=== PATIENT | female | born 1970 | race American Indian/Alaskan Native ===

== ENCOUNTER → 2019-01-31 07:23 | Outpatient (CLI) | payer BC, SELFPAY ==
[2019-01-31 09:15] LABS: Alanine Aminotransferase 68 IU/L (9-52); Albumin 4.3 g/dL (3.5-5.0); Albumin Globulin Ratio 1.5 (1.0-2.8); Alkaline Phosphatase 83 U/L (38-126); Aspartate Aminotransferase 42 IU/L (14-36); BUN Creatinine Ratio 12.9 (6-22); Blood Urea Nitrogen 9 mg/dL (7-17); Calcium 9.4 mg/dL (8.4-10.2); Carbon Dioxide 28 mmol/L (22-32); Chloride 102 mmol/L (98-107); Cholesterol 147 mg/dL (140-199); Estimated Glomerular Filt Rate > 60.0 mL/min (>60); Globulin 2.9 g/dL (1.7-4.1); Glucose 111 mg/dL (70-100); HDL Cholesterol 38 mg/dL (40-60); HEMOLYSIS < 15 (0-50); LDL Cholesterol Calculated 73 mg/dL (<100); Potassium 4.3 mmol/L (3.4-5.1); Sodium 142 mmol/L (137-145); Total Protein 7.2 g/dL (6.3-8.2); Triglycerides 180 mg/dL (35-150)
[2019-01-31 09:19] LABS: Creatinine Urine Random 265.2 mg/dL
[2019-01-31 09:45] LABS: Microalbumi Creatinin Ratio Ur 104.4 ug/mg CR (<30); Microalbumin Urine Random 27.7 mg/dL (0-1.6)
== END ==
PROVIDERS: Family Provider Physician Assistant; PCP Physician Assistant; Visit Provider Physician Assistant
DX: I10 Essential (primary) hypertension (principal); F41.8 Other specified anxiety disorders; G47.33 Obstructive sleep apnea (adult) (pediatric); E66.01 Morbid (severe) obesity due to excess calories
CPT/HCPCS: 36415; 80053; 80061; 82043; 82570

== ENCOUNTER → 2019-10-16 07:00 | Outpatient (CLI) | payer BC, SELFPAY ==
[2019-10-16 09:08] LABS: Alanine Aminotransferase 64 IU/L (<35); Albumin 4.3 g/dL (3.5-5.0); Albumin Globulin Ratio 1.4 (1.0-2.8); Alkaline Phosphatase 81 U/L (38-126); Aspartate Aminotransferase 48 IU/L (14-36); BUN Creatinine Ratio 17.1 (6-22); Bilirubin Total 0.8 mg/dL (0.2-1.3); Blood Urea Nitrogen 12 mg/dL (7-17); Calcium 9.1 mg/dL (8.4-10.2); Carbon Dioxide 30 mmol/L (22-32); Chloride 99 mmol/L (98-107); Cholesterol 164 mg/dL (140-199); Estimated Glomerular Filt Rate > 60.0 mL/min (>60); Glucose 132 mg/dL (70-100); HDL Cholesterol 30 mg/dL (40-60); HEMOLYSIS < 15 (0-50); LDL Cholesterol Calculated 89 mg/dL (<100); Potassium 3.8 mmol/L (3.4-5.1); Sodium 137 mmol/L (137-145); Total Protein 7.3 g/dL (6.3-8.2); Triglycerides 226 mg/dL (35-150)
[2019-10-16 09:42] LABS: Creatinine Urine Random 233.4 mg/dL
[2019-10-16 09:46] LABS: Microalbumi Creatinin Ratio Ur 14.9 ug/mg CR (<30); Microalbumin Urine Random 3.5 mg/dL (0-1.6)
== END ==
PROVIDERS: PCP Physician Assistant; Visit Provider Physician Assistant
DX: E78.1 Pure hyperglyceridemia (principal); I10 Essential (primary) hypertension
CPT/HCPCS: 36415; 80053; 80061; 82043; 82570

== ENCOUNTER → 2021-02-12 12:27 | Outpatient (CLI) | payer BC, SELFPAY ==
[2021-02-12] MEDS: COVID-19 VACC #1, MRNA(MOD) 100 MCG/0.5 ML VIAL IM (12:35)
== END ==
PROVIDERS: PCP Family Medicine; Visit Provider Internal Medicine
DX: Z23 Encounter for immunization (principal)
CPT/HCPCS: 0011A; 91301

== ENCOUNTER → 2021-03-12 12:17 | Outpatient (CLI) | payer BC, SELFPAY ==
[2021-03-12] MEDS: COVID-19 VACC #2, MRNA(MOD) 100 MCG/0.5 ML VIAL IM (12:24)
== END ==
PROVIDERS: PCP Family Medicine; Visit Provider Internal Medicine
DX: Z23 Encounter for immunization (principal)
CPT/HCPCS: 0012A; 91301

== ENCOUNTER → 2022-12-13 07:30 | Outpatient (CLI) | payer OTHER, SELFPAY ==
[2022-12-13 09:00] LABS: Add Manual Diff / Slide Review NO; Basophils Absolute Auto 0 /uL (0-100); Basophils Percent Auto 0.6 % (0-2); Eosinophils Absolute Auto 200 /uL (0-450); Eosinophils Percent Auto 2.3 % (2-4); Hematocrit 39.6 % (36-46); Hemoglobin 13.3 g/dL (12.0-16.0); Lymphocytes Absolute Auto 3200 /uL (1100-4500); Lymphocytes Percent Auto 44.3 % (25-40); Mean Corpuscular HGB Conc 33.6 % (30-36); Mean Corpuscular Hemoglobin 27.4 PG (26-34); Mean Corpuscular Volume 81.5 fL (80-100); Monocytes Absolute Auto 400 /uL (0-900); Monocytes Percent Auto 5.8 % (3-14); Neutrophils Absolute Auto 3400 /uL (1500-7000); Platelet Count 244 X10^3/uL (150-400); Red Blood Cell Count 4.86 X10^6/uL (4.0-5.2); Red Cell Distribution Width 14.3 % (11.6-14.8); White Blood Cell Count 7.2 X10^3/uL (4.5-11.0)
[2022-12-13 09:06] LABS: Hemoglobin A1C% w Est Avg Glu 10.9 % (4.0-6.0)
[2022-12-13 09:20] LABS: Alanine Aminotransferase 52 IU/L (<35); Albumin 3.8 g/dL (3.5-5.0); Albumin Globulin Ratio 1.4 (1.0-2.8); Alkaline Phosphatase 99 U/L (38-126); Aspartate Aminotransferase 33 IU/L (14-36); Bilirubin Total 0.9 mg/dL (0.2-1.3); Blood Urea Nitrogen 8 mg/dL (7-17); Calcium 8.9 mg/dL (8.4-10.2); Carbon Dioxide 24 mmol/L (22-32); Chloride 104 mmol/L (98-107); Cholesterol 138 mg/dL (140-199); Estimated Glomerular Filt Rate > 60 mL/min (>60); Globulin 2.7 g/dL (1.7-4.1); Glucose 307 mg/dL (70-100); HDL Cholesterol 30 mg/dL (40-60); HEMOLYSIS < 15 (0-50); LDL Cholesterol Calculated 56 mg/dL (<100); Potassium 4.3 mmol/L (3.4-5.1); Sodium 138 mmol/L (137-145); Total Protein 6.5 g/dL (6.3-8.2); Triglycerides 259 mg/dL (35-150)
[2022-12-13 09:48] LABS: TSH w/ Reflex to FT4 2.03 uIU/mL (0.47-4.68)
== END ==
PROVIDERS: PCP Family Medicine; Referring Provider Family Medicine; Visit Provider Family Medicine
DX: E66.01 Morbid (severe) obesity due to excess calories (principal); E78.1 Pure hyperglyceridemia; F32.89 Other specified depressive episodes; I10 Essential (primary) hypertension; R73.9 Hyperglycemia, unspecified
CPT/HCPCS: 36415; 80053; 80061; 83036; 84443; 85025

== ENCOUNTER → 2024-01-17 07:11 | Outpatient (CLI) | payer OTHER, SELFPAY ==
[2024-01-17 07:31] LABS: Add Manual Diff / Slide Review NO; Basophils Absolute Auto 100 /uL (0-100); Basophils Percent Auto 0.6 % (0-2); Eosinophils Absolute Auto 200 /uL (0-450); Eosinophils Percent Auto 2.9 % (2-4); Hematocrit 40.2 % (36-46); Hemoglobin 13.6 g/dL (12.0-16.0); Lymphocytes Absolute Auto 3500 /uL (1100-4500); Lymphocytes Percent Auto 43.7 % (25-40); Mean Corpuscular HGB Conc 33.9 % (30-36); Mean Corpuscular Hemoglobin 27.9 PG (26-34); Mean Corpuscular Volume 82.3 fL (80-100); Monocytes Absolute Auto 400 /uL (0-900); Monocytes Percent Auto 5.5 % (3-14); Neutrophils Absolute Auto 3800 /uL (1500-7000); Neutrophils Percent Auto 47.3 % (50-75); Platelet Count 264 X10^3/uL (150-400); Red Blood Cell Count 4.88 X10^6/uL (4.0-5.2); Red Cell Distribution Width 14.1 % (11.6-14.8)
[2024-01-17 07:56] LABS: Alanine Aminotransferase 42 IU/L (<35); Albumin 3.7 g/dL (3.5-5.0); Albumin Globulin Ratio 1.3 (1.0-2.8); Alkaline Phosphatase 79 U/L (38-126); Aspartate Aminotransferase 34 IU/L (14-36); BUN Creatinine Ratio 19.3 (6-22); Bilirubin Total 0.7 mg/dL (0.2-1.3); Blood Urea Nitrogen 11 mg/dL (7-17); Calcium 9.1 mg/dL (8.4-10.2); Carbon Dioxide 26 mmol/L (22-32); Chloride 107 mmol/L (98-107); Cholesterol 142 mg/dL (140-199); Estimated Glomerular Filt Rate > 60 mL/min (>60); Globulin 2.9 g/dL (1.7-4.1); Glucose 229 mg/dL (70-100); HDL Cholesterol 31 mg/dL (40-60); HEMOLYSIS < 15 (0-50); LDL Cholesterol Calculated 59 mg/dL (<100); Potassium 4.1 mmol/L (3.4-5.1); Sodium 138 mmol/L (137-145); Total Protein 6.6 g/dL (6.3-8.2); Triglycerides 260 mg/dL (35-150)
[2024-01-17 08:25] LABS: TSH w/ Reflex to FT4 2.14 uIU/mL (0.47-4.68)
[2024-01-17 11:51] LABS: Hemoglobin A1C% w Est Avg Glu 9.7 % (4.0-6.0)
== END ==
PROVIDERS: PCP Family Medicine; Referring Provider Family Medicine; Visit Provider Family Medicine
DX: E11.9 Type 2 diabetes mellitus without complications (principal); I10 Essential (primary) hypertension; E66.01 Morbid (severe) obesity due to excess calories; G47.33 Obstructive sleep apnea (adult) (pediatric)
CPT/HCPCS: 36415; 80053; 80061; 83036; 84443; 85025

== ENCOUNTER 2024-06-18 07:09 | Emergency (ER) | payer SELFPAY ==
[2024-06-18 07:10] VITALS: BP 178/74; PULSE 83; RESP 16; TEMP 37; O2SAT 97; BMI 40.6
[2024-06-18 07:17] VITALS: PULSE 87; O2SAT 97
--- NOTE | 2024-06-18 07:23 | ED.GENADULT ---
HPI - General Adult General Chief complaint: Dental/Oral Stated complaint: r side face swelling Time Seen by Provider: 06/18/24 07:19 Source: patient, RN notes reviewed and old records reviewed Mode of arrival: Ambulatory Limitations: no limitations History of Present Illness HPI narrative: 54-year-old female history of hypertension diabetes type 2, SUNSHINE, depressive disorder, tobacco use who presents with complaint of dental pain, facial swelling that started 2 days ago. Patient states the 2nd tooth from the right upper posterior became painful she has had increasing swelling and discomfort extending into her cheek and towards her nose. Patient states it feels like it has a little swollen over the hard palate. She states this started Tuesday, she has called but can not get a dental appointment for another week or 2. Denies fevers, no vomiting, she is noticed some swelling of her outer cheek, little bit of redness, no fluid collection. She has not had any drainage from her mouth. She denies any swelling of her tongue or airway. No changes to voice. No nausea or vomiting. Patient has tried Tylenol [id number] without improvement. She does use tobacco daily. She denies any drug allergies. Dr. [place] in his her primary care physician. Related Data Home Medications Medication Instructions Recorded Confirmed ETONOGESTREL (IMPLANON~) 68 mg intradermal ##0 04/05/13 01/19/24 Previous Rx's Medication Instructions Recorded citalopram 20 mg tablet (Celexa) 30 mg (1.5 x 20 mg) PO QDAY #135 01/19/24 tabs glimepiride 1 mg tablet 1 mg PO DAILY #30 tabs 01/19/24 lisinopril 10 mg tablet 10 mg PO DAILY #90 tabs 01/19/24 metformin 500 mg tablet,extended 500 mg PO BID #180 tabs 01/19/24 release 24 hr pioglitazone 15 mg tablet (Actos) 15 mg PO DAILY #90 tabs 01/19/24 trazodone 50 mg tablet 50 mg PO ONCE PM #90 tabs 01/19/24 blood sugar diagnostic (Blood #50 ea 01/20/24 Glucose Test strips) blood-glucose meter (Blood Glucose #1 ea 01/20/24 Monitoring kit) lancets 30 gauge #100 ea 01/20/24 amoxicillin 875 mg-potassium 1 tab PO BID #20 tabs 06/18/24 clavulanate 125 mg tablet tramadol 50 mg tablet 50 mg PO Q6H PRN pain #10 tabs 06/18/24 Allergies Allergy/AdvReac Type Severity Reaction Status Date / Time No Known Drug Allergies Allergy Verified 06/18/24 07:19 Review of Systems Review of Systems ROS Unobtainable: All systems reviewed & are unremarkable except as noted in HPI and below Patient History Medical History Contraception management Insomnia Type 2 diabetes mellitus Obstructive sleep apnea (Unknown) Depression (Unknown) Abnormal Pap smear of cervix (Unknown) Surgical History Status post bunionectomy History of tonsillectomy Status post delivery (03/26/93) Family History Father Obstructive sleep apnea syndrome Social History Smoking Status: Current every day smoker Tobacco: How many years used: 10 second hand exposure: No alcohol intake: current substance use type: does not use Smoking Status: Current every day smoker Exam Narrative Exam Narrative: GEN: well nourished, well appearing female, alert and oriented x 3, patient appears to be in mild distress. HEENT: Atraumatic, pupils are equal round reactive to light, extraocular movements are intact, nares are clear, TMs are clear with no fluid, there is no conjunctival pallor. Throat is clear without any exudates, erythema, tonsillar enlargement or uvular deviation, patient has some mild swelling of the right cheek compared to the left, no appreciable erythema. Patient has some swelling around the right upper molar 2nd from the back on the upper. Patient does not have any obvious drainage or fluid collection. She does not have any swelling of her oropharynx or tongue. Normal speech. No cervical lymphadenopathy. HEART: Regular rate and rhythm without murmur, clicks, rubs. LUNGS:Lungs clear to auscultation, no wheezes, rales, crackles, chest moves symmetrically ABD:bowel sounds normal, soft, non-tender, no guarding, rebound, rigidity, no masses noted, no hepatosplenomegaly MSCL: Non-tender, no muscle atrophy, muscles strength 5/5 upper and lower extremities, full range of motion, normal gait NEURO:CN 2-12 intact, sensation normal Initial Vital Signs Initial Vital Signs: Vital Signs Temperature 98.6 F 06/18/24 07:10 Pulse Rate 83 06/18/24 07:10 Respiratory Rate 16 06/18/24 07:10 Blood Pressure 178/74 H 06/18/24 07:10 Pulse Oximetry 97 06/18/24 07:10 Oxygen Delivery Method Room Air 06/18/24 07:10 Course Orders Ordered: Discontinued Medications Amoxicillin/Clavulanate Potassium (Amoxicillin/Clav 875/125 Mg) 1 tab PO NOW ONE Stop: 06/18/24 07:36 Last Admin: 06/18/24 07:44 Dose: 1 tab Documented By: FANNY Tramadol HCl (Tramadol 50 Mg Tablet) 50 mg PO NOW ONE Stop: 06/18/24 07:36 Last Admin: 06/18/24 07:44 Dose: 50 mg Documented By: FANNY Vital Signs Vital signs: Vital Signs - 8 hr 06/18/24 07:10 06/18/24 07:17 06/18/24 07:30 Temperature 98.6 F Pulse Rate 83 87 80 Respiratory Rate 16 Blood Pressure 178/74 H Pulse Oximetry 97 97 96 Oxygen Delivery Method Room Air Room Air 06/18/24 07:30 Temperature Pulse Rate Respiratory Rate Blood Pressure 150/68 H Pulse Oximetry Oxygen Delivery Method Medical Decision Making [facility] Narrative Medical decision making narrative: 54-year-old female likely is developing dental abscess we will cover with Augmentin, short course of pain medication with return precautions. Patient has already reached out to a dentist to set up follow-up. Discharge Plan Departure Patient Disposition: Home Clinical Impression: Dental abscess Instructions: Tooth Abscess Activity Restrictions/Additional Instructions: Follow up with your dentist. Can take Tylenol up to a 1000 mg every 6 hours and/or ibuprofen up to 600 mg every 6 hours as needed for pain. If in adequate you can take tramadol 1-2 tablets every 6 hours as needed. This medication can make you sleepy do not drive, perform hazardous activities or make any major decisions while taking it. This medication will make you constipated please take a stool softener once to twice daily until stools are soft and regular. Prescription sent to [facility] in [place]. Please return for fevers, swelling of the tongue, airway, changes to voice, persistent vomiting, increasing redness swelling of the face or mouth, purulent drainage or other new or concerning changes. Prescriptions: New amoxicillin-pot clavulanate 875-125 mg tablet 1 tab PO BID Qty: 20 0RF tramadol 50 mg tablet 50 mg PO Q6H PRN (Reason: pain) Qty: 10 0RF No Action ETONOGESTREL (IMPLANON~) 68 mg Intradermal Qty: 0 lisinopril 10 mg tablet 10 mg PO DAILY Qty: 90 0RF Rx Instructions: start taking 3/ citalopram [Celexa] 20 mg tablet 30 mg PO QDAY Qty: 135 3RF metformin 500 mg tablet extended release 24 hr 500 mg PO BID Qty: 180 2RF pioglitazone [Actos] 15 mg tablet 15 mg PO DAILY Qty: 90 3RF trazodone 50 mg tablet 50 mg PO ONCE PM Qty: 90 3RF glimepiride 1 mg tablet 1 mg PO DAILY Qty: 30 2RF Rx Instructions: Take with dinner (DME) blood-glucose meter [Blood Glucose Monitoring] Kit See Rx Instructions .Route Qty: 1 1RF Rx Instructions: Use to test blood sugars BID (DME) lancets 30 gauge misc See Rx Instructions .Route Qty: 100 1RF Rx Instructions: Use to test blood sugar BID (DME) Blood Glucose Test Strip See Rx Instructions .Route Qty: 50 3RF Rx Instructions: Use to test blood sugars bid Referrals: Spencer Samano, [Primary Care Provider] - Stand Alone Forms: Patient Portal/API
[2024-06-18 07:30] VITALS: BP 150/68; PULSE 80; O2SAT 96
[2024-06-18] MEDS: TRAMADOL 50 MG TABLET PO (07:44)
[2024-06-18] MEDS: AMOXICILLIN/CLAV 875/125 MG 1 TAB PO (07:44)
== END 2024-06-18 07:50 | disposition home or self-care (01) ==
PROVIDERS: Emergency Provider Emergency Medicine; PCP Family Medicine
DX: K04.7 Periapical abscess without sinus (principal); Z79.899 Other long term (current) drug therapy
CPT/HCPCS: 99283

== ENCOUNTER 2024-10-13 11:31 | Emergency (ER) | payer OTHER, BC, SELFPAY ==
[2024-10-13] VITALS (25 sets, daily range): BP systolic 148–180; BP diastolic 65–101; PULSE 97–110; RESP 17–31; TEMP 36.9; O2SAT 95–98; BMI 40.6
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
--- NOTE | 2024-10-13 11:52 | EKG_ITS ---
[address] [address] Test Date: 2024-10-13 Pat Name: Nola Caban Department: 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
[2024-10-13 12:21] LABS: Add Manual Diff / Slide Review NO; Basophils Absolute Auto 100 /uL (0-100); Basophils Percent Auto 0.7 % (0-2); Eosinophils Absolute Auto 200 /uL (0-450); Eosinophils Percent Auto 1.7 % (2-4); Hematocrit 41.4 % (36-46); Hemoglobin 13.9 g/dL (12.0-16.0); Lymphocytes Absolute Auto 3700 /uL (1100-4500); Lymphocytes Percent Auto 35.8 % (25-40); Mean Corpuscular HGB Conc 33.5 % (30-36); Mean Corpuscular Hemoglobin 27.3 PG (26-34); Mean Corpuscular Volume 81.5 fL (80-100); Monocytes Absolute Auto 500 /uL (0-900); Monocytes Percent Auto 4.7 % (3-14); Neutrophils Absolute Auto 5900 /uL (1500-7000); Neutrophils Percent Auto 57.1 % (50-75); Platelet Count 292 X10^3/uL (150-400); Red Blood Cell Count 5.08 X10^6/uL (4.0-5.2); Red Cell Distribution Width 15.6 % (11.6-14.8); White Blood Cell Count 10.3 X10^3/uL (4.5-11.0)
[2024-10-13 12:29] LABS: Prothrombin Time 11.2 SECONDS (9.4-12.5)
[2024-10-13 12:31] LABS: PTT Partial Thromboplastin Tim 40 SECONDS (25.1-36.5)
[2024-10-13 12:32] LABS: Pregnancy Test Serum,Qual Negative (Negative)
[2024-10-13 12:33] LABS: Alanine Aminotransferase 46 IU/L (<35); Albumin 4.3 g/dL (3.5-5.0); Albumin Globulin Ratio 1.4 (1.0-2.8); Alkaline Phosphatase 88 U/L (38-126); Aspartate Aminotransferase 40 IU/L (14-36); Bilirubin Total 0.7 mg/dL (0.2-1.3); Blood Urea Nitrogen 9 mg/dL (7-17); Carbon Dioxide 22 mmol/L (22-32); Chloride 105 mmol/L (98-107); Estimated Glomerular Filt Rate > 60 mL/min (>60); Ethanol (ETOH) < 10 mg/dL; Glucose 256 mg/dL (70-100); HEMOLYSIS < 15 (0-50); Lactate (Lactic Acid) 2.1 mmol/L (0.7-2.1); Lipase 96 U/L (23-300); Potassium 3.9 mmol/L (3.4-5.1); Sodium 136 mmol/L (137-145); Total Protein 7.3 g/dL (6.3-8.2)
[2024-10-13] MEDS: TET,DIPH,PERTUSS(ACELL),VAC/PF 0.5 ML SYRINGE IM (13:02)
[2024-10-13 13:25] LABS: UR Morphine/Opiate cutoff 300 Negative (Negative); Ur Creatinine Normal (Normal); Ur Specific Gravity Normal (Normal); Urine Amphetamines Negative (Negative); Urine Barbiturates Negative (Negative); Urine Benzodiazepines Negative (Negative); Urine Cocaine Negative (Negative); Urine MDMA Negative (Negative); Urine Methadone Negative (Negative); Urine Methamphetamines Negative (Negative); Urine Oxycodone Negative (Negative); Urine Phencyclidine Negative (Negative); Urine Tetrahydrocannabinol Negative (Negative); Urine Tricyclic Antidepressant Negative (Negative); Urine pH Normal (Normal)
[2024-10-13 13:53] LABS: Reflexed Lactate in 2 Hours Y
--- NOTE | 2024-10-13 15:13 | PC.NURSE ---
Modified trauma care with Nazario Key
== END 2024-10-13 15:40 | disposition home or self-care (01) ==
PROVIDERS: Emergency Provider Emergency Medicine; PCP Family Medicine
DX: S39.012A Strain of muscle, fascia and tendon of lower back, initial encounter (principal); M54.2 Cervicalgia; S30.1XXA Contusion of abdominal wall, initial encounter; V43.52XA Car driver injured in collision with other type car in traffic accident, initial encounter; Z23 Encounter for immunization
CPT/HCPCS: 70450; 71275; 72125; 74177; 80053; 80305; 80320; 82962; 83605; 83690; 84703; 85025; 85610; 85730; 90471; 93005; 99284; 90715